=== PATIENT | male | born 1965 | race Hispanic/Latino ===

== ENCOUNTER → 2023-06-01 | Outpatient (CLI) | payer OTHER ==
[~2023-06-01] MED LIST: IOHEXOL-350 75 ML VIAL IV ONE
== END | disposition home or self-care (01) ==
LOC: RAH 07:35 → EDSTATUS 08:00
PROVIDERS: ATTEND Internal Medicine
DX: K80.20 Calculus of gallbladder without cholecystitis without obstruction (principal); K76.89 Other specified diseases of liver; R16.0 Hepatomegaly, not elsewhere classified; R79.89 Other specified abnormal findings of blood chemistry; R53.81 Other malaise
CPT/HCPCS: 74170; Q9967

== ENCOUNTER 2024-10-04 11:47 | Emergency (ER) | payer OTHER ==
[~2024-10-04] VITALS: Ht 170.2 cm; Wt 90.7 kg
--- NOTE | 2024-10-04 11:57 | ERN ---
ED Note History of Present Illness Stated Complaint: ABD PAIN Chief Complaint: Abdominal Pain Time Seen by MD: 11:51 Dictation: PATIENT IS A 59-YEAR-OLD MALE HERE WITH KNOWN LIVER CANCER IN HIS PENDING AND TRANSPLANT IN [facility]. HIS COMPLAINT IS TODAY HE WAS OUT FOR HIS USUAL 2-3 MD WALK IN THE MORNINGS WHEN HE STARTED HAVING EPIGASTRIC PAIN THAT RADIATED TO BILATERAL RIGHT AND UPPER QUADRANTS. NO NAUSEA VOMITING NO CHEST PAIN NO BACK PAIN NO SOB. HE STATES HE IS CURRENTLY GETTING RADIATION. ONCOLOGISTS IS IN [place]. Allergies: Coded Allergies: No Known Drug Allergies (Unverified Allergy, Intermediate, 10/04/24) Home Meds Active Scripts Dicyclomine HCl (Bentyl) 20 Mg Tab, 20 MG PO Q6HPRN PRN for ABDOMINAL CRAMPS, #20 TAB Prov:KETURAH MENCHACA METAL PRECISION MACHINE ASSEMBLER 10/04/24 Past Medical History RN Note Reviewed/Agreed w/PFSH: Yes Review of System Dictation CONSTITUTIONAL: NEGATIVE EXCEPT FOR HPI HEAD/FACE: NEGATIVE EXCEPT FOR HPI EENT: NEGATIVE EXCEPT FOR HPI RESPIRATORY: NEGATIVE EXCEPT FOR HPI GASTROINTESTINAL/ABDOMINAL: NEGATIVE EXCEPT FOR HPI EPIGASTRIC PAIN THAT RADIATES TO RIGHT AND LEFT UPPER QUADRANTS GENITOURINARY: NEGATIVE EXCEPT FOR HPI MUSCULOSKELETAL: NEGATIVE EXCEPT FOR HPI INTEGUMENTARY: NEGATIVE EXCEPT FOR HPI NEUROLOGICAL/PSYCH: NEGATIVE EXCEPT FOR HPI HEMATOLOGIC/LYMPHATIC: NEGATIVE EXCEPT FOR HPI ALL SYSTEMS NEGATIVE, EXCEPT NOTED ABOVE. 13 POINT REVIEW OF SYSTEMS ASSESSED AND ALL NEGATIVE EXCEPT FOR ABOVE. Initial Vital Sign VS Vital Signs Date Time Temp Pulse Resp B/P (MAP) Pulse Ox O2 Delivery O2 Flow Rate FiO2 10/04/24 11:54 98.6 79 20 146/93 98 Room Air 0 10/04/24 13:19 21 Physical Exam Dictation VITAL SIGNS REVIEWED GENERAL APPEARANCE: ALERT, ORIENTED X 3, NO ACUTE DISTRESS, WELL DEVELOPED, NOURISHED. HEAD AND FACE: NON-TRAUMATIC. EYES: PERRL, PINK CONJUNCTIVAS, EYELID NO TRAUMA, ANTERIOR CHAMBER WITH ARCUS SENILIS. EARS: PINNAS INTACT AND NO SIGNS OF TRAUMA OR ERYTHEMA EAR CANALS CLEAR AND NO DISCHARGE TM NO ERYTHEMA NOSE: NO DISCHARGE, NO BLEEDING. OROPHARYNX: MOUTH NORMAL, TONGUE PINK, PHARYNX CLEAR,NO ERYTHEMA, TONSILS NO EXUDATES, NO ABSCESSES NOTED, MUCOUS MEMBRANE MOIST NECK: SUPPLE, NON-TENDER, NO THYROMEGALY, NO MASSES, NO JVD, NO BRUITS BREAST:DEFERRED CHEST:NO TENDERNESS, NO CREPITUS, NO PARADOXICAL MOVEMENT, NO RETRACTIONS LUNGS:CLEAR, WELL-VENTILATED, SYMMETRIC, NO RALES, NO WHEEZING, NO RHONCHI, NO STRIDOR, GOOD BREATH SOUNDS BILATERALLY HEART: REGULAR RATE, REGULAR RHYTHM, NO MURMUR, NO GALLOPS VASCULAR: NO PERIPHERAL EDEMA, ABDOMEN: SOFT, POSITIVE BOWEL SOUNDS, NONDISTENDED, NO GUARDING, MILD EPIGASTRIC TENDERNESS, NO REBOUND, NO MASSES NO HEPATOMEGALY, NO SPLENOMEGALY, NO GORE'S SIGN, NO HERNIAS. RECTAL: DEFERRED GENITAL: DEFERRED NEUROLOGICAL: NORMAL SPEECH, MOTOR FUNCTION INTACT, SENSORY FUNCTION INTACT MUSCULOSKELETAL: NECK NONTENDER, FULL RANGE OF MOTION, BACK NONTENDER, FULL RANGE OF MOTION, EXTREMITIES: NONTENDER, FULL RANGE OF MOTION SKIN: COLOR PINK, DRY, NO TURGOR, NO RASH, NO LACERATIONS, NO ABRASIONS, NO CONTUSIONS. LYMPHATIC: DEFERRED Results (Laboratory/Radiology) Laboratory/Radiology Labs Reviewed?: Yes EKG Comment: EKG NORMAL SINUS RHYTHM/HEART RATE 80/AXIS NORMAL/NO ECTOPY ED Course ED Course 1520/PATIENT IN NO PAIN AT THIS TIME WE WILL REVIEWED EKG LABS TO INCLUDE ALKALINE PHOSPHATE WITH PATIENT. HE WAS MADE AWARE THAT HE COULD TAKE BENTYL FOR PAIN STATES HE HAD BEEN DRINKING A HOMEMADE CONCOCATION FOR HIS LIVER CANCER I ADVISED HIM TO STOP THAT UNTIL HE SPOKE WITH HIS PRIMARY CARE DOCTOR. HEART Score Response (Comments) Value History: Low suspicion (0) 0 Age: 45-65yrs (+1) 1 Risk Factors: 1-2 risk factors (+1) 1 Initial Troponin: Normal limit (0) 0 Total 2 Medical Decision Making MDM MDM: DIFFERENTIAL DIAGNOSIS: BILIARY COLIC/FATTY LIVER/ELECTROLYTE IMBALANCE/DEHYDRATION/ASA/AMI RATIONALE: TESTS CONSIDERED AND ORDERED SECONDARY TO SHARED DECISION MAKING INCLUDE: EKG/LABS/RADIOLOGY PREVIOUS OUTSIDE RECORDS REVIEWED: OLD ER VISITS. RISK OF COMPLICATION AND/OR MORBIDITY OR MORTALITY OF PATIENT MANAGEMENT: NONE MEDICATIONS-PER MEDICATION RECONCILIATION NEED FOR HOSPITALIZATION: PATIENT DOES NOT MEET CRITERIA FOR HOSPITALIZATION. NONE NEED FOR EMERGENCY MAJOR/MINOR SURGERY: NO THERE ARE NO SOCIAL CONCERNS WITH THIS PATIENT. PRESCRIPTION DRUG MANAGEMENT BENTYL PRESCRIPTIONS WILL INCLUDE SYMPTOMATIC CARE PATIENT'S PRIOR EXTERNAL MEDICAL RECORDS FROM OTHER ER VISITS WERE REVIEWED BY ME INDICATED. PRIOR TESTING AND RESULTS FROM PREVIOUS VISITS WERE REVIEWED. PRIOR TESTS WERE TAKEN INTO ACCOUNT WITH MEDICAL DECISION MAKING AND RESOURCE UTILIZATION, INDEPENDENT HISTORIAN/HISTORIANS WERE USED TO OBTAIN COMPLETE MEDICAL HISTORY. I INDEPENDENTLY INTERPRETED THE TEST THAT WERE PERFORMED, RESULTS WERE REVIEWED BY ME AND CONSIDERED FINDINGS ON RADIOLOGY IF ORDERED. MEDICAL MANAGEMENT AND EXAMINATION INTERPRETATION DISCUSSIONS WERE HAD BY ME WITH OTHER QUALIFIED HEALTHCARE PROFESSIONALS INDICATED FOR THE PATIENT'S CARE. DX & DISP Disposition: Discharge Departure Impression: Primary Impression: Abdominal pain Additional Impressions: Elevated alkaline phosphatase level, Liver cancer Condition: Stable Scripts Dicyclomine HCl (Bentyl) 20 Mg Tab 20 MG PO Q6HPRN PRN for ABDOMINAL CRAMPS, #20 TAB Prov: KETURAH MENCHACA METAL PRECISION MACHINE ASSEMBLER 10/04/24 Referrals: MARILEE COOPER MD (PCP) Time of Disposition: 15:26 I have reviewed the case, and I agree with, Diagnosis and Plan I performed the substantive portion of the visit. I have reviewed and personally made and approve the management plan that is documented in the notes by myself or the MARIS. I acknowledge full responsibility for the patient's management plan. KETURAH MENCHACA NP Oct 04, 2024 11:57 JUICE EDUARDO MD Oct 07, 2024 18:34
--- NOTE | 2024-10-04 12:11 | EKG ---
[facility] Test Date: 2024-10-04 Test Time: 12:04:40 Pat Name: MARSHALL DUFFY Department: [facility] Room: Gender: Industrial Economist: [facility] : 1965 Requested By: KETURAH MENCHACA Order Number: [id number] Reading MD: Sara Scott Measurements Intervals [place] Rate: 80 P: 60 MO: 149 QRS: 76 QRSD: 99 T: 46 QT: 365 QTc: 421 Interpretive Statements Sinus rhythm Compared to ECG 02/28/2016 04:01:34 No significant changes Electronically Signed On 10-04-2024 14:36:57 CLAMPER by Sara Scott Please click the below link to view image of tracing.
[2024-10-04 12:23] LABS: BASOPHILS # (AUTO) 0.03 K/uL (0.00-0.20); BASOPHILS % (AUTO) 0.4 % (0.0-5.0); EOSINOPHILS # (AUTO) 0.12 K/uL (0.00-0.70); EOSINOPHILS % (AUTO) 1.8 % (0.0-8.0); HEMATOCRIT 43.1 % (42-54); IMMATURE GRANULOCYTE ABSOLUTE 0.02 K/uL (0-1); LYMPHOCYTES # (AUTO) 0.4 K/uL (1.0-4.8); LYMPHOCYTES % (AUTO) 5.9 % (21.0-51.0); MEAN CORPUSCULAR HEMOGLOBIN 29.4 pg (27.0-33.0); MEAN CORPUSCULAR HGB CONC 33.4 g/dL (32.0-36.0); MONOCYTES # (AUTO) 0.8 K/uL (0.1-1.0); NEUTROPHILS # (AUTO) 5.4 K/uL (1.8-7.7); NEUTROPHILS % (AUTO) 79.6 % (40.0-77.0); PLATELET COUNT (AUTO) 145 K/uL (130-400); RED CELL DISTRIBUTION WIDTH 12.9 % (11.0-15.5); WHITE BLOOD COUNT (AUTO) 6.8 K/uL (4.8-10.8)
[2024-10-04 12:37] LABS: CREATININE 0.7 mg/dL (0.5-1.3); POTASSIUM 4.1 mmol/L (3.5-5.1)
[2024-10-04 12:41] LABS: ALBUMIN 3.8 g/dL (3.5-5.0); BILIRUBIN,TOTAL 0.8 mg/dL (0.2-1.0); TOTAL PROTEIN, SERUM 8.3 g/dL (6.0-8.3)
[2024-10-04 13:29] LABS: APPEARANCE,URINE CLEAR (CLEAR); BILIRUBIN,URINE NEGATIVE (NEGATIVE); COLOR,URINE YELLOW (YELLOW); GLUCOSE, URINE (UA) NEGATIVE (NEGATIVE); KETONES,URINE NEGATIVE (NEGATIVE); LEUKOCYTE ESTERASE ,URINE NEGATIVE Leu/uL (NEGATIVE); NITRATE,URINE NEGATIVE (NEGATIVE); OCCULT BLOOD,URINE NEGATIVE (NEGATIVE); PH,URINE 7.5 (5.0-8.0); PROTEIN,URINE 10 mg/dL (NEGATIVE); UROBILINOGEN,URINE 6 mg/dL (0.2-1.0)
[2024-10-04 13:35] LABS: ADD UA MICROSCOPIC YES
[2024-10-04 13:39] LABS: MUCUS,URINE RARE LPF (None Seen); WBC,URINE 0-1 /HPF (0-1)
[2024-10-04] MEDS ORDERED: DICY20TA2 PO (15:26)
[2024-10-04 15:30] VITALS: BP 122/75; PULSE 70; RESP 18; TEMP 98.6; O2SAT 98
== END 2024-10-04 15:35 | disposition home or self-care (01) ==
LOC: EDH 11:47
DX: R10.13 Epigastric pain (principal); R74.8 Abnormal levels of other serum enzymes; C80.1 Malignant (primary) neoplasm, unspecified
CPT/HCPCS: 36415; 80053; 81001; 83690; 84484; 85025; 93005; 99284